=== PATIENT | female | born 1980 | race Caucasian/White ===

== ENCOUNTER 2021-07-13 14:50 | Outpatient (CLI) | payer OTHER, SELFPAY ==
--- NOTE | 2021-07-13 14:55 | US_ITS ---
STUDY: COMPLETE RENAL ULTRASOUND EXAMINATION OF 1501 HOURS 1501 HOURS O REASON FOR EXAM: 40-year-old female with a urinary tract infection. TECHNIQUE: Ultrasound evaluation of the kidneys was performed with real-time and static luis-scale imaging. COMPARISON: None. FINDINGS: RIGHT KIDNEY: Normal location of the right kidney, which is normal in size. The right kidney measures 9.2 cm in length by 4.5 cm in height by 5.9 cm in width. There is a normal cortex of the right kidney. The renal cortex measures 1.22 cm. There is no right renal mass or cyst. There are no right renal calculi. There is no right hydronephrosis. There is no evidence of a pyelonephritis. DISTAL RIGHT URETER: There is non-visualization of the distal right ureter. There is no demonstrated right ureterovesical junction calculus. There is a visualized right ureteral jet. LEFT KIDNEY: Normal location of the left kidney, which is normal in size. The left kidney measures 10.0 cm in length by 4.5 cm in height by 5.0 cm in width. There is a normal cortex of the left kidney. The renal cortex measures 1.40 cm. There is no left renal mass or cyst. There are no left renal calculi. There is no left hydronephrosis. There is no evidence of a pyelonephritis. DISTAL LEFT URETER: There is non-visualization of the distal left ureter. There is no demonstrated left ureterovesical junction calculus. There is a visualized left ureteral jet.. BLADDER: The distended urinary bladder has a volume of ml. The empty urinary bladder has a volume of 277 ml. There is a normal 2.2 mm wall thickness of the distended urinary bladder. There is no demonstrated mass within the urinary bladder. There are no demonstrated bladder calculi. US/Kidney and Bladder IMPRESSION: 1. Normal-sized kidneys without evidence for pyelonephritis. 2. No hydronephrosis or objective uropathy. No ureteral obstruction; bilateral ureteral urine jets were noted. 3. No renal cystic or solid mass lesions or calcifications or calculi. 4. Normal renal cortical thickness bilaterally. 5. Normal bladder. Electronically Signed: Oliver Pelaez MD at 0:59 EDT ,
== END 2021-07-13 23:59 | disposition home or self-care (01) ==
LOC: US 14:54
PROVIDERS: PCP Preventive Medicine Public Health & General Preventive Medicine; Referring Provider Urology; Visit Provider Urology
DX: N39.0 Urinary tract infection, site not specified (principal)
CPT/HCPCS: 76770

== ENCOUNTER 2021-08-27 07:22 | Day surgery (SDC) | payer OTHER, SELFPAY ==
[2021-08-27] MEDS: Lactated Ringers 1,000 ML 15 ML IV (07:35)
[2021-08-27 07:59] LABS: Internal QC Validated? YES +Cl - CLEAR BKGD; Pregnancy, Urine Negative Negative
[2021-08-27 08:02] VITALS: BP 120/69; PULSE 58; RESP 17; TEMP 36.6; O2SAT 100; BMI 23.8
[2021-08-27 08:35] LABS: Thyroid Stim Hormone (TSH) 2.04 uIU/mL (0.358-3.74)
--- NOTE | 2021-08-27 08:40 | OP.PCM_ITS ---
Problems Associated Problem List Diagnoses (1) Stress incontinence: Report of Operation Date of Procedure: 08/27/21 Pre-Operative Diagnosis: Stress incontinence Post-Operative Diagnosis: Same Surgery/Procedure Performed:: Mid urethral sling insertion, cystoscopy Surgeon: Soila Shepard Type of Anesthesia: General Description of Procedure: The patient is a 40-year-old female with stress urinary incontinence who now presents for surgical intervention. Informed consent was obtained. The patient was taken to the operating room and placed on the operating room table. Anesthesia monitored the head, neck, airway, IV access and vital signs throughout the case. Once anesthesia was appropriate ministered the patient was placed into dorsal lithotomy position was prepped and draped in usual sterile fashion. A 16 [place] Dang catheter was inserted to straight drain. The mid urethra was isolated and infiltrated with lidocaine with epinephrine for hydrostatic dissection and hemostatic control. A midline vertical incision approximately 2 cm in length was then made. Both sharp and blunt dissection was performed on either side of the urethra with care being taken to avoid entrance into the urethra and the vaginal mucosa. At this time using the given trochars, the mid urethral sling was placed with the tines into the obturator complexes bilaterally. The sling was positioned against the urethra without tension using the tensioning suture. It lay flat. The tensioning suture was cut. The incision was closed using running interlocking 2-0 Vicryl. The Dang catheter was then removed and the cystoscope was inserted through the urethra under direct visualization into the urinary bladder. Upon visualization of the urinary bladder and urethra, there was no evidence of foreign body, injury or abnormality identified. At this time the cystoscope was removed and the patient was awakened and taken to the recovery room in good condition. There were no complications during this procedure. Grafts/Implants Used: Altis mid urethral sling Complications None Admit VTE Documentation VTE Present on Admission: Yes VTE Pharm Prophylaxis ordered?: No Reason prophylaxis not ordered:: Treatment Not Indicated
--- NOTE | 2021-08-27 08:43 | DCINST_ITS ---
Discharge Instructions Diet Discharge Diet: No restrictions Activity Discharge Activity: May Drive (When not taking pain medications) and May Shower May resume sexual activity in: 4 weeks Lifting Restrictions: 5 pounds Additional Activity Instructions:: No strenuous activity, no sexual activity, no swimming, no hot tubs, no tub bathing Dressing / Incision Call your doctor if your incision/area has: Continuous Slow Oozing, Sudden Increased Bleeding, Increased Pain/ Swelling, Increased Redness, Foul Smelling Discharge and Swelling at the incision site Call your doctor if you observe: Fever of 101 or Higher, Inability to urinate and Inability to have a bowel movement Follow Up Care Please Follow Up With: Soila Shepard MD When: Call the office for appointment Test Results: Test results from this visit will be discussed in further detail at your follow-up appointment, if applicable. Discharge Plan Admission Attending Provider: Soila Shepard Primary Care Provider: Ajit Martinez Discharge Orders/Prescriptions Prescriptions: New cephalexin [cephalexin] 500 MG capsule 500 mg PO Q12 3 Days Qty: 6 RF: 0 oxycodone-acetaminophen [oxycodone-acetaminophen] 1 TABLET tablet 2 tab PO Q8H PRN PRN (Reason: Pain) 7 Days Qty: 20 RF: 0 Continued multivitamin Tablet 1 tab PO DAILY RF: 0 ascorbic acid (vitamin C) [Vitamin C] 500 mg Capsule, Extended Release 500 mg PO DAILY RF: 0 cholecalciferol (vitamin D3) [Vitamin D3] 25 mcg (1,000 unit) Tablet 25 mcg PO DAILY RF: 0 thyroid (pork) [[place] Thyroid] 60 mg tablet 60 mg PO DAILY RF: 0 turmeric 400 mg Capsule 400 mg PO DAILY RF: 0 Referrals / Follow Up: Ajit Martinez MD [Primary Care Provider] - Disposition Disposition (needs filled in before D/C Order can be placed): Home, Self Care
[2021-08-27] MEDS: Cefazolin 2 GM in 0.9% Normal Saline 100 ML IV (08:55)
[2021-08-27] MEDS: Lidocaine 1% /Epi 1:100 (50ml) 50 ML VIAL (09:15)
[2021-08-27 09:40] VITALS: BP 113/72; BP 120/69; PULSE 82; RESP 16; TEMP 36.9; O2SAT 100
[2021-08-27 09:45] VITALS: BP 104/84; BP 120/69; PULSE 75; RESP 16; O2SAT 100
[2021-08-27 10:00] VITALS: BP 109/77; BP 120/69; PULSE 64; RESP 16; O2SAT 100
[2021-08-27 10:15] VITALS: BP 120/69; BP 121/76; PULSE 58; RESP 16; TEMP 36.5; O2SAT 98
[2021-08-27 11:42] VITALS: BP 120/69; BP 98/71; PULSE 50; RESP 16; TEMP 36.3; O2SAT 98
[2021-08-27 14:32] LABS: Free T3 2.2 pg/mL (2.18-3.98); T4 Free Direct 0.88 ng/dL (0.76-1.46)
== END 2021-08-27 12:20 | disposition home or self-care (01) ==
LOC: SDC 07:23 → AC 07:24
PROVIDERS: PCP Preventive Medicine Public Health & General Preventive Medicine; Referring Provider Urology; Visit Provider Urology
PROC: 0TJB8ZZ Inspection of Bladder, Via Natural or Artificial Opening Endoscopic (ICD-10-PCS; CPT 57288; principal; 2021-08-27 08:40)
DX: N39.3 Stress incontinence (female) (male) (principal); R39.198 Other difficulties with micturition; D64.9 Anemia, unspecified; E07.9 Disorder of thyroid, unspecified; Z79.899 Other long term (current) drug therapy
CPT/HCPCS: 57288; 00860; 81025; 84439; 84443; 84481; 87426; J7120